=== PATIENT | female | born 1975 | race Caucasian/White ===

== ENCOUNTER 2018-02-05 06:47 | Emergency (ER) | payer OTHER ==
[~2018-02-05] VITALS: Ht 162.6 cm; Wt 104.3 kg
[2018-02-05] MEDS ORDERED: HYDROCODONE/APAP 7.5MG-325MG 1 EA TAB PO ONE (07:15)
[2018-02-05] MEDS ORDERED: ONDANSETRON HCL 4 MG ORAL DISINTEGRATING TAB PO ONE (07:15)
[2018-02-05] MEDS ORDERED: NERVE TONIC PO (08:04)
[2018-02-05] MEDS ORDERED: LISINOPRIL20 MG PO (08:04)
--- NOTE | 2018-02-05 08:49 | Diagnostic Imaging Report ---
This report includes an Addendum and supersedes previous reports for this exam. PROCEDURE:X-RAY LEFT SHOULDER, COMPLETE COMPARISON:None. INDICATIONS:FALL FINDINGS: There is a mildly displaced, comminuted fracture of the proximal humerus, involving the humeral head, greater tuberosity, surgical neck and extending into the proximal metaphysis. There is approximately 5 mm of displacement. Glenohumeral alignment is maintained. CONCLUSION: Comminuted, mildly displaced proximal humerus fracture with involvement of the humeral head, greater tuberosity and surgical neck. Dictated by: TISH BOWENS M.D. on 02/05/2018 at 8:59 Electronically approved by: TISH BOWENS M.D. on 02/05/2018 at 8:59 ADDENDUM: Above findings were discussed with the ED responding physician in person in the Radiology department at 835 AM on 02/05/18. Dictated by: TISH BOWENS M.D. on 02/05/2018 at 9:00 Electronically approved by: TISH BOWENS M.D. on 02/05/2018 at 9:00
--- NOTE | 2018-02-05 08:54 | Diagnostic Imaging Report ---
PROCEDURE:X-RAY LEFT HUMERUS, TWO OR MORE VIEWS COMPARISON:Left shoulder radiographs 02/05/18 at 749AM. INDICATIONS:FALL FINDINGS: Somewhat limited exam secondary to mobility. Mildly displaced, comminuted proximal humerus fracture is again noted. No additional fractures are identified in the humerus. The elbow cannot be evaluated on this study. No evidence of soft tissue abnormality. CONCLUSION: Comminuted, mildly displaced left proximal humerus fracture. Please refer to the concurrently performed shoulder radiograph dictation for further details. No additional fractures are identified in the humerus. The elbow cannot be evaluated on this study. Dictated by: TISH BOWENS M.D. on 02/05/2018 at 9:04 Electronically approved by: TISH BOWENS M.D. on 02/05/2018 at 9:04
[2018-02-05] MEDS ORDERED: ACETAMINOPHEN650 MG RC (09:01)
[2018-02-05] MEDS ORDERED: KETOROLAC TROME10 MG PO (09:01)
[2018-02-05] MEDS ORDERED: ULTRAM50 MG PO (09:01)
[2018-02-05 09:27] VITALS: BP 134/74
== END 2018-02-05 09:23 | disposition home or self-care (01) ==
LOC: ER 06:47
DX: S42.252A Displaced fracture of greater tuberosity of left humerus, initial encounter for closed fracture (principal); R11.0 Nausea; W18.2XXA Fall in (into) shower or empty bathtub, initial encounter; Y93.E1 Activity, personal bathing and showering; Y92.002 Bathroom of unspecified non-institutional (private) residence as the place of occurrence of the external cause
CPT/HCPCS: 29240; 73030; 73060; 99284; Q0162